=== PATIENT | female | born 1980 | race Caucasian/White ===

== ENCOUNTER 2017-01-10 06:16 | Inpatient (IN) | payer OTHER ==
[2017-01-10] MEDS ORDERED: Sodium Citrate/Citric Acid 15 ml Sol PO ONE (06:23)
[2017-01-10] MEDS ORDERED: cefOXitin IV 2 gm in Dextrose 2 GM/50 ML BAG IVPB ONE ×2 (06:23→06:56)
[2017-01-10 06:28] VITALS: BMI 41.4
[2017-01-10] MEDS ORDERED: Lactated Ringer's 1,000 ML IV SCH ×2 (06:30→08:45)
--- NOTE | 2017-01-10 06:39 | OBHP ---
Datetime: 01/10/2017 06:32 IP Adm Impression: Term, intrauterine ; Intact Membranes IP Admit Plan: Admit to unit; Initiate Section protocol Admit Comment, IP Provider: at 38+weeks came with abdominal pain started last might, no lof,+fm . baby moving less.pt has comfort following MFM Dr Dotson .recommeded delivery at 38 weeks. obhx 2 x c/s, 2 x sab pmh GDMA2, Ch htn, HYPOTHYROIDISM. MED Metformin, levothyroxine, labetolol, pnv osh c/s x 2 soch de ve /-2 a/p at 38+weeks previous c/s with bdominal pain/ch htn/gdma2 admit to l7d npo/ivf labs anthesia aware skin abxs Informed consent signed.r/a/b discussed Pelvic Type - PN: Adequate Extremities - PN: Normal Abdomen - PN: Normal Back - PN: Normal Breast - PN: Normal Lungs - PN: Normal Heart - PN: Normal Thyroid - PN: Normal Neurologic - PN: Normal HEENT - PN: Normal General - PN: Normal FHR - Baseline A Provider: 130 Contraction Comments Provider: irrg Comments, ACOG Physical Exam: gravid,non tender ext no edema,no calf ten IP Hx Assessment: The History has been Reviewed and is Current EGA AdmitDate IP: 38.1 Vital Signs Provider: Reviewed; Within Normal Limits IP Chief Complaint: Uterine contractions NICHD Variability Prov Fetus A: Moderate 6-25bpm Dilatation, Provider: 2 Effacement, Provider: 60 Station, Provider: -2 Genitourinary Exam: Normal DTRs - PN: Normal
[2017-01-10] MEDS ORDERED: Oxytocin 20 units in LR 2,000 ML IV ONE (06:55)
[2017-01-10] MEDS ORDERED: Sodium Citrate/Citric Acid 15 ml Sol ONE (06:55)
[2017-01-10 06:56] LABS: BASO % 0.3 % (0.0-2.0); EOS % 0.3 % (0.0-4.0); HEMATOCRIT 38.4 % (34.0-47.0); LYMPH # 3.7 K/uL (1.0-4.3); LYMPH % 27.8 % (20.0-40.0); MEAN CELL VOLUME 85.9 fL (81.0-99.0); MEAN CORPUSCULAR HEMOGLOBIN 28.8 pg (27.0-31.0); MEAN CORPUSCULAR HGB CONC 33.5 g/dL (33.0-37.0); MONO # 1.1 K/uL (0.0-0.8); MONO % 8.5 % (0.0-10.0); RED CELL DISTRIBUTION WIDTH 14.4 % (11.5-14.5); WHITE BLOOD COUNT 13.2 K/uL (4.8-10.8)
[2017-01-10 07:12] LABS: INR 0.9
[2017-01-10 07:21] LABS: RBC URINE 2 /hpf (0-3); URINE BACTERIA MOD (<OCC); URINE BILIRUBIN NEGATIVE (NEGATIVE); URINE BLOOD NEGATIVE (NEGATIVE); URINE COLOR Yellow (YELLOW); URINE GLUCOSE (UA) NORMAL (Normal); URINE KETONE NEGATIVE (NEGATIVE); URINE LEUKOCYTE ESTERASE NEG Leu/uL (Negative); URINE PROTEIN NEGATIVE (NEGATIVE); URINE UROBILINOGEN NORMAL mg/dL (0.2-1.0); WBC URINE 4 /hpf (0-5)
[2017-01-10 07:25] LABS: CHLORIDE 101 mmol/L (98-107)
[2017-01-10 07:26] LABS: POTASSIUM 4.5 mmol/L (3.6-5.2); SODIUM 136 mmol/L (132-148)
[2017-01-10 07:28] LABS: ALKALINE PHOSPHATASE 336 U/L (38-126); AST/SGOT 32 U/L (14-36); BILIRUBIN,DIRECT 0.4 mg/dL (0.0-0.4); BILIRUBIN,TOTAL 0.5 mg/dL (0.2-1.3); CARBON DIOXIDE 23 mmol/L (22-30); GFR AFRICAN-AMERICAN > 60; TOTAL PROTEIN 6.7 g/dL (6.3-8.3)
[2017-01-10 07:29] LABS: ALT/SGPT 31 U/L (9-52); BLOOD UREA NITROGEN 10 mg/dL (7-17); CALCIUM 9.7 mg/dl (8.6-10.4); GLUCOSE,RANDOM 88 mg/dL (65-105)
[2017-01-10] MEDS ORDERED: Oxycodone/Acetaminophen 5/325 mg Tab PO PRN ×2 (07:38)
--- NOTE | 2017-01-10 07:40 | PCM.SURG1 ---
Surgeon's Initial Post Op Note - Surgeon's Notes Surgeon: dr james Welt Stitcher: dr houge Type of Anesthesia: Spinal Anesthesia Administered By: dr stephenson Pre-Operative Diagnosis: 36 yr at 38+weeks dm/htm with abdominal pain/ previous section Operative Findings: see the op reoprt Post-Operative Diagnosis: same with adhesions Operation Performed: repeat cesaerean section, bilateral tubal ligtion, jessica Specimen/Specimens Removed: fetus. placente. cord blod Estimated Blood Loss: EBL {In ML}: 800 Blood Products Given: N/A Drains Used: No Drains Post-Op Condition: Good Date of Surgery/Procedure: 01/10/17 Time of Surgery/Procedure: 10:00
[2017-01-10] MEDS ORDERED: Oxytocin 10 Units/ml Inj ONE (07:48)
[2017-01-10] MEDS ORDERED: HYDROmorphone 0.5 mg/0.5 ml ISec IVP PRN (08:36)
[2017-01-10] MEDS ORDERED: DiphenhydrAMINE 50 mg/ml Inj IVP PRN (08:36)
[2017-01-10] MEDS ORDERED: Dexamethasone 4 mg/1 ml IVP PRN (08:36)
--- NOTE | 2017-01-10 08:44 | OBDS ---
DELIVERY PERSONNEL Delivery Doctor: Seb Walker MD Scrub Nurse: Lyric [facility] [employer] Truck Driver: Bobby Loyola RN Anesthesiologist: cony MATERNAL INFORMATION Delivery Anesthesia: Spinal Medications in Delivery: pitocin 20/cytotec 1000 Estimated Blood Loss (ml): 800 Placenta Cultured: Yes Maternal Complications: None Provider Comments: baby deliverd in jessica.end clean.no com LABOR SUMMARY EDC: 01/23/2017 00:00 No. Babies in Womb: 1 Attempted: Yes Labor Anesthesia: None LABOR INFORMATION Oxytocin: N/A Group B Beta Strep: Negative Antibiotics # of Doses: 1 Antibiotics Time of Last Dose: 700 Steroids Given: None Reason Steroids Not Administered: Not Applicable MEMBRANES Membranes Rupture Method: Artificial Rupture of Membranes: 01/10/2017 07:59 Length of Rupture (hrs): 0.02 Amniotic Fluid Color: Clear Amniotic Fluid Amount: Moderate Amniotic Fluid Odor: Normal STAGES OF LABOR Stage 3 hrs: 0 Stage 3 min: 1 VAGINAL DELIVERY Episiotomy: None Laceration Extension: N/A Laceration Type: None CSECTION DELIVERY Primary Indication: Repeat Elective Secondary Indication: N/A CSection Urgency: Elective CSection Incidence: Repeat Labor: No Labor Elective: Elective CSection Incision: Lower Uterine Transverse BABY A INFORMATION Delivery Date/Time: 01/10/2017 08:00 Method of Delivery: Born in Route : No : N/A Forceps: N/A Vacuum Extraction: N/A Shoulder Dystocia : No SHOULDER DYSTOCIA BABY A Infant Delivery Date/Time: 01/10/2017 08:00 PRESENTATION/POSITION BABY A Presentation: Cephalic Cephalic Presentation: Vertex Vertex Position: Left Occipital Anterior Breech Presentation: N/A PLACENTA INFORMATION BABY A Placenta Delivery Time : 01/10/2017 08:01 Placenta Method of Delivery: Manual Removal Placenta Status: Delivered SCORES BABY A Heart Rate 1 min: >100 bpm Resp Effort 1 min: Good Cry Reflex Irritability 1 min: Cough or Sneeze or Pulls Away Muscle Tone 1 min: Active Motion Color 1 min: Body Rolfe, Extremities Blue Resuscitation Effort 1 min: Tactile Stimulation SCORE 1 MIN: 9 Heart Rate 5 min: >100 bpm Resp Effort 5 min: Good Cry Reflex Irritability 5 min: Cough or Sneeze or Pulls Away Muscle Tone 5 min: Active Motion Color 5 min: Body Rolfe, Extremities Blue SCORE 5 MIN: 9 INFANT INFORMATION BABY A Gestational Age at Delivery: 38.0 Gestational Status: Term Infant Outcome : Liveborn Condition : Stable IDENTIFICATION/MEDS BABY A ID Band Number: [id number] Sensor Number: [id number] WEIGHT/LENGTH BABY A Infant Birthweight (gms): 3005 Infant Weight (lb): 6 Weight (oz): 10 Infant Length Inches: 19.00 Infant Length cms: 48.3 CORD INFORMATION BABY A No. Cord Vessels: 3 Nuchal Cord : N/A Cord Blood Taken: Yes Infant Suction: Mouth; Nose ASSESSMENT BABY A Complications: None Physical Findings at Delivery: Within Normal Limits Respirations: Appears Normal Blacking Machine Operator/ALS Called : No Infant Care By: alysa Transferred To: Remains with Mother
[2017-01-10] MEDS: Simethicone 80 mg Chewtab PO SCH ×3 (13:19→22:08)
--- NOTE | 2017-01-10 19:27 | OP ---
PREOPERATIVE DIAGNOSES: A 36-year-old 5, para 2, at 38 weeks and 1 day with previous section, abdominal pain, history of diabetes, hypertension, and hypothyroidism, approved by Maternal Medicine to do the section at 38 weeks. POSTOPERATIVE DIAGNOSES: A 36-year-old 5, para 2, at 38 weeks and 1 day with previous section, abdominal pain, history of diabetes, hypertension, hypothyroidism, and adhesions, approved by Maternal Medicine to do the section at 38 weeks. PROCEDURES PERFORMED: Repeat section, bilateral tubal ligation, and lysis of adhesions. SURGEON: Seb Walker MD. COUNTY ADMINISTRATOR: Dr. Maharaj who was present throughout the surgery for retraction, exposing and pushing at the time of delivery, and helping with the tubal ligation. ANESTHESIA: Spinal. ANESTHESIOLOGIST: Dr. Martinez. ESTIMATED BLOOD LOSS: 800 mL. COMPLICATIONS: None. DESCRIPTION OF PROCEDURE: After informed consent was obtained, the patient was brought to the operating room where a spinal anesthesia was given. When anesthesia was found to be sufficient, she was prepped and draped in normal sterile fashion. A Rosario catheter was then inserted under sterile condition. At the site of the previous skin incision, an incision was made with a knife. Dissection was continued with the Bovie. The fascia was then excised on both the sides using curved Bradley scissors. Fascia was from the site of the pubic bone and the umbilicus. The peritoneum was lifted up with Metzenbaum and the peritoneum was severely stuck to the uterus. It was removed with the Metzenbaum scissors. Bladder blade was placed. Bladder flap could not created because it was stuck to the uterus. After that, the lower uterine segment incision was made with a knife. *------* curved Bradley scissors. Baby was delivered in KENN position. Cord was clamped and cut. Baby was handed to the awaiting shade matcher. 's of the baby was 9 and 9. It was a baby boy. Cord gas was taken. Cord and placenta were removed manually and sent to the Pathology. Uterus was exteriorized and cleared of all the clots and debris. When we took out the uterus, there was adhesion coming from the fundus above the uterus to the omentum. Two Cecily's were placed. It was cut with the knife and then it was tied up with a 2-0 plain. After that, both the tubes were adequately visualized. Bilateral tubal ligation was done on both sides in modified Henderson technique. Uterine incision was closed with #1 Vicryl in running interlocking fashion. Second layer was imbricated with the same stitch. Cul-de-sac was cleared of all the clots and debris. Then, uterus was returned back to abdominal cavity. It was not bleeding. Surgicel was placed. After that, tubes were well visualized but not bleeding. Vaginal cuff was closed with #1 Vicryl in running interlocking fashion. Muscle was closed in running interlocking fashion. Fascia was closed using #1 Vicryl in running interlocking fashion. Subcutaneous tissue was closed with 0 Vicryl in interrupted fashion. Skin was closed using 2-0 Monocryl straight needle. The patient tolerated the procedure well. Lap, sponge, and instrument counts were correct x2. Seb Walker MD
[2017-01-11] MEDS: Levothyroxine 125 MCG TAB PO SCH (06:15)
[2017-01-11] MEDS ORDERED: Bisacodyl 5mg EC Tab PO ONE (07:38)
[2017-01-11 08:02] LABS: HEMATOCRIT 35.2 % (34.0-47.0); MEAN CELL VOLUME 85.3 fL (81.0-99.0); MEAN CORPUSCULAR HEMOGLOBIN 28.7 pg (27.0-31.0); MEAN CORPUSCULAR HGB CONC 33.6 g/dL (33.0-37.0); MEAN PLATELET VOLUME 7.8 fL (7.2-11.7); RED CELL DISTRIBUTION WIDTH 14.9 % (11.5-14.5); WHITE BLOOD COUNT 17.4 K/uL (4.8-10.8)
[2017-01-11 08:11] LABS: CHLORIDE 96 mmol/L (98-107)
[2017-01-11 08:12] LABS: POTASSIUM 3.9 mmol/L (3.6-5.2); SODIUM 131 mmol/L (132-148)
[2017-01-11 08:14] LABS: ALT/SGPT 33 U/L (9-52); BILIRUBIN,TOTAL 0.8 mg/dL (0.2-1.3); BLOOD UREA NITROGEN 5 mg/dL (7-17); GFR AFRICAN-AMERICAN > 60
[2017-01-11 08:15] LABS: ALB/GLOB RATIO 0.9 (1.0-2.1); ALKALINE PHOSPHATASE 241 U/L (38-126); AST/SGOT 34 U/L (14-36); CALCIUM 8.6 mg/dl (8.6-10.4); CARBON DIOXIDE 24 mmol/L (22-30); GLUCOSE,RANDOM 86 mg/dL (65-105); TOTAL PROTEIN 5.6 g/dL (6.3-8.3)
[2017-01-11] MEDS: Simethicone 80 mg Chewtab PO SCH ×5 (09:53→21:11)
[2017-01-11] MEDS: Piperacillin/Tazobact 3.375 GM in Sodium Chloride 100 ML IVPB SCH (17:21)
[2017-01-12] MEDS: Piperacillin/Tazobact 3.375 GM in Sodium Chloride 100 ML IVPB SCH ×3 (01:06→17:04)
[2017-01-12] MEDS: Levothyroxine 125 MCG TAB PO SCH (06:21)
[2017-01-12 08:37] LABS: BASO # 0.1 K/uL (0.0-0.2); BASO % 0.3 % (0.0-2.0); EOS # 0.1 K/uL (0.0-0.7); EOS % 0.9 % (0.0-4.0); HEMATOCRIT 33.2 % (34.0-47.0); LYMPH # 1.9 K/uL (1.0-4.3); LYMPH % 12.9 % (20.0-40.0); MEAN CELL VOLUME 86.4 fL (81.0-99.0); MEAN CORPUSCULAR HEMOGLOBIN 29.2 pg (27.0-31.0); MEAN CORPUSCULAR HGB CONC 33.8 g/dL (33.0-37.0); MEAN PLATELET VOLUME 7.7 fL (7.2-11.7); MONO # 1.2 K/uL (0.0-0.8); MONO % 8.3 % (0.0-10.0); RED CELL DISTRIBUTION WIDTH 14.6 % (11.5-14.5); WHITE BLOOD COUNT 14.5 K/uL (4.8-10.8)
[2017-01-12 08:44] LABS: POTASSIUM 3.8 mmol/L (3.6-5.2)
[2017-01-12 08:47] LABS: ALB/GLOB RATIO 0.9 (1.0-2.1); BILIRUBIN,TOTAL 0.6 mg/dL (0.2-1.3); CALCIUM 8.6 mg/dl (8.6-10.4); TOTAL PROTEIN 5.8 g/dL (6.3-8.3)
[2017-01-12] MEDS: Simethicone 80 mg Chewtab PO SCH ×4 (09:47→21:55)
--- NOTE | 2017-01-12 13:18 | OBPPN ---
Datetime: 01/12/2017 13:16 PP Pain Prov: Within normal limits PP Nausea Prov: Denies PP Flatus Prov: No PP Abdomen/Uterus Prov: Normal PP Lochia Prov: Normal PP Extremities Prov: Normal PP C/S Incision Prov: Normal PP Comments Phys Exam Prov: fudus below umblicus ext no edema, nni calf ten incision clean and dry PP Impression Prov: Normal progression PP Plan Prov: Continue present management PP Progress Note Prov: pt was seen at bed side, pain under control, no n/v, tolerating fdeit, no fev er, no flus pod#2 s/p c/s cont pain josé antonio cont post op care encourage ambulatio Vital Signs Provider PP: Reviewed; Within Normal Limits Datetime: 01/11/2017 07:27 PP BM Prov: No
[2017-01-13] MEDS: Piperacillin/Tazobact 3.375 GM in Sodium Chloride 100 ML IVPB SCH ×2 (00:15→09:31)
[2017-01-13] MEDS: Levothyroxine 125 MCG TAB PO SCH (06:29)
[2017-01-13 09:03] VITALS: BP 100/68; PULSE 80; RESP 20; TEMP 98; O2SAT 100
[2017-01-13] MEDS: Simethicone 80 mg Chewtab PO SCH (09:30)
--- NOTE | 2017-01-13 10:54 | OBPPN ---
Datetime: 01/13/2017 10:39 PP Pain Prov: Within normal limits PP Nausea Prov: Denies PP Flatus Prov: Yes PP BM Prov: Yes PP Breasts Prov: Normal PP Heart Prov: Normal PP Lungs Prov: Normal PP Abdomen/Uterus Prov: Normal PP Lochia Prov: Normal PP Vulva/Perineum Prov: Not Done PP CVA Tenderness Prov: Normal PP Extremities Prov: Normal PP C/S Incision Prov: Normal PP Progress Prov: Normal PP Comments Phys Exam Prov: Skin: warm, dry, intact Breasts: large, symmetric; no cracked nipples Abdomen: Obese. Soft. Non distended. Fundus firm, mobile 2 FB below umbilicus. Incision with subcu ticular closure - clen, dry and intact. Mild lochia rubra Extremities: 2+ pitting edema; no calf tenderness All other systems reviewed and are negative PP Impression Prov: Normal progression PP Plan Prov: Discharge PP Progress Note Prov: Asked by Dr. Walker to evaluate patient for discharge Patient received in bed, room 452 - . Denies nausea, vomiting. Ambulating and voiding without difficulty. (+) flatus; (-) BM. Denies headaches, blurred vision, epigastric or RUQ pain. P.E.: as above. Obese, in NAD. Awake, alert, oriented to time, person and place. Pleasant and coop erative. present Assessment: POD#3, 36 y.o. P3, S/P repeat C/S with BTL. Post op fever - on zosyn; currently afebri le. H/O gesational HTN - meds D/C'd by Prim OB on day of repeat C/S. H/O A2GDM. H/O hypothyroid - on levothyroxine. Afebrile, vital signs stable. Returning GI and functions. Clinically stable. Plan 1) Discharge home 2) See full discharge instructions. Vital Signs Provider PP: Reviewed; Within Normal Limits
== END 2017-01-13 14:02 | disposition home or self-care (01) | DRG 371 ==
LOC: C.EROB 06:16 → C.4D 06:27 → C.4M 11:00
PROVIDERS: ADMIT Obstetrics & Gynecology; ATTEND Obstetrics & Gynecology
PROC: 10D00Z1 Extraction of Products of Conception, Low, Open Approach (ICD-10-PCS; principal; 2017-01-10)
PROC: 0DNW0ZZ Release Peritoneum, Open Approach (ICD-10-PCS; 2017-01-10)
PROC: 0UB70ZZ Excision of Bilateral Fallopian Tubes, Open Approach (ICD-10-PCS; 2017-01-10)
DX: O34.211 Maternal care for low transverse scar from previous cesarean delivery (principal); O75.82 Onset (spontaneous) of labor after 37 completed weeks of gestation but before 39 completed weeks gestation, with delivery by (planned) cesarean section; O24.420 Gestational diabetes mellitus in childbirth, diet controlled; O99.284 Endocrine, nutritional and metabolic diseases complicating childbirth; O16.4 Unspecified maternal hypertension, complicating childbirth; E03.9 Hypothyroidism, unspecified; O99.89 Other specified diseases and conditions complicating pregnancy, childbirth and the puerperium; N73.6 Female pelvic peritoneal adhesions (postinfective); I10 Essential (primary) hypertension; O86.4 Pyrexia of unknown origin following delivery; Z30.2 Encounter for sterilization; Z3A.38 38 weeks gestation of pregnancy; Z37.0 Single live birth